=== PATIENT | female | born 1950 | race Caucasian/White ===

== ENCOUNTER 2018-08-30 17:16 | Emergency (ER) | payer MEDICARE, OTHER ==
[~2018-08-30] VITALS: Ht 152.4 cm; Wt 93.0 kg
[2018-08-30] MEDS ORDERED: METFORMIN HCL500 MG PO (17:22)
[2018-08-30] MEDS ORDERED: LIPITOR10 MG PO (17:22)
[2018-08-30 17:38] LABS: ABSOLUTE BASOPHILS 0.1 thou/uL (0.0-0.2); ABSOLUTE EOSINOPHILS 0.2 thou/uL (0.0-0.7); ABSOLUTE LYMPHOCYTES 2.5 thou/uL (0.8-5.3); ABSOLUTE MONOCYTES 0.9 thou/uL (0.0-1.2); ABSOLUTE NEUTROPHILS 7.3 thou/uL (1.6-8.1); BASOPHILS 0.9 %; EOSINOPHILS 1.9 %; HEMATOCRIT 40.2 % (37.0-47.0); HEMOGLOBIN 13.1 gm/dL (12.0-15.0); LYMPHOCYTES 22.4 %; MCHC 32.5 g/dL (28.0-37.0); MCV 86.2 fL (80.0-100.0); MONOCYTES 8.4 %; NUCLEATED RBCS 0 /100WBC; PLATELET COUNT* 283 thou/uL (150-400); POLYS 66.4 %; RBC 4.66 mil/uL (4.20-5.00); RDW-CV 14.3 % (10.5-14.5)
[2018-08-30 17:49] LABS: ANION GAP 10 mmol/L (7-16); BUN 12 mg/dL (7-18); CALCIUM 8.6 mg/dL (8.5-10.1); CHLORIDE 101 mmol/L (98-107); CO2 30 mmol/L (21-32); CREATININE 0.9 mg/dL (0.6-1.3); GLUCOSE 93 mg/dL (70-99); POTASSIUM 3.8 mmol/L (3.5-5.1); SODIUM 141 mmol/L (136-145)
[2018-08-30 17:55] LABS: APTT 27.5 Seconds (25.0-31.3); INR 0.9; PROTIME 9.3 Seconds (9.20-11.50)
[2018-08-30 18:10] LABS: ALBUMIN 3.7 g/dL (3.4-5.0); ALKALINE PHOSPHATASE 93 U/L (46-116); CK-MB MASS < 0.5 ng/mL (<0.5-3.6); LIPASE 155 U/L (73-393); MAGNESIUM 1.9 mg/dL (1.8-2.4); NT-PRO BRAIN NAT PEPTIDE 24 pg/mL (<300); SGOT 15 U/L (15-37); SGPT 22 U/L (30-65); TOTAL BILIRUBIN 0.3 mg/dL (<0.1-1.0); TOTAL PROTEIN 7.6 g/dL (6.4-8.2); TROPONIN-I LEVEL <0.06 ng/mL (<0.06)
[2018-08-30] MEDS ORDERED: ZPAK PO (18:17)
[2018-08-30] MEDS ORDERED: PREDNISONE 20 M20 M1 PO (18:17)
[2018-08-30 18:40] VITALS: BP 143/82
--- NOTE | 2018-08-31 14:59 | EKG ---
[place] [address] ELECTROCARDIOGRAM REPORT Name: MARKO OLIVIER [facility] [id number] Admission: 08/30/18 Attend Phys: Discharge: 08/30/18 Date of : 52 Report #: [id number] THIS REPORT FOR: //name// [facility] ED Test Date: 2018-08-30 Test Time: 17:20:46 Pat Name: MARKO OLIVIER Department: Room: Gender: F Nursing Staffing Coordinator: PARKER : 1950 Requested By: Orestes Petty Order Number: [id number] MD: Oseas Mancia Measurements Intervals [place] Rate: 78 P: 52 PA: 148 QRS: 37 QRSD: 116 T: 4 QT: 368 QTc: 420 Interpretive Statements Sinus rhythm Incomplete right bundle branch block Low voltage, precordial leads No previous ECG available for comparison Electronically Signed On 08-31-2018 14:59:06 [employer] by Oseas Mancia [email or web address] <ELECTRONICALLY SIGNED> By: Oseas Mancia MD, [facility] 08/31/18 1459 1720 1720 Oseas Mancia MD, FACC /EPI
== END 2018-08-30 18:40 | disposition home or self-care (01) ==
LOC: M.ERS 17:16
PROVIDERS: Family Medicine
DX: J40 Bronchitis, not specified as acute or chronic (principal); E11.9 Type 2 diabetes mellitus without complications; Z90.710 Acquired absence of both cervix and uterus